=== PATIENT | female | born 1975 | race Caucasian/White ===

== ENCOUNTER 2017-01-18 12:24 | Emergency (ER) | payer OTHER ==
[2017-01-18 12:41] VITALS: BP 129/77; PULSE 75; TEMP 98; BMI 35.5
[2017-01-18] MEDS ORDERED: IBUPROFEN 600 MG TABLET (FP) PO ONE ×2 (15:05→15:08)
[2017-01-18] MEDS ORDERED: ALBUTEROL SO4 2.5/IPRATROPIUM 0.5 INH SOL 3 ML VIAL.NEB. NEB ONE ×2 (15:12→15:22)
--- NOTE | 2017-01-18 15:12 | PDOC ---
History of Present Illness - General Chief Complaint: Cold Symptoms Stated Complaint: CHEST PAIN Time Seen by Provider: 01/18/17 13:10 History Source: Patient Exam Limitations: No Limitations - History of Present Illness Initial Comments: 01/18/17 15:12 Chief complaint: Dry cough 2 days with chest tightness today and chest discomfort with deep breathing and headache History of present illness: Patient is a 41-year-old female with no significant medical history here today complaining of dry cough 2 days with chest tightness and chest discomfort with deep breathing with short of breath. Patient reports having generalized headache that started today. Patient denies any fever. Patient has slight nasal congestion, denies sore throat, nausea, vomiting, or diarrhea or generalized body aches. Patient did not have influenza vaccine. Patient denies that anyone in her family is sick or any known sick contacts or any recent travel. Patient denies any chance of has IUD and has her menstrual cycle now. 01/18/17 16:42 Timing/Duration: intermittent (cough dry with chest discomfort) Severity: mild, severe (headache ) Associated Symptoms: reports: chest pain (with coughing ), cough (dry ), headaches, other (chest discomfort with coughing ) Past History - Past Medical History Allergies/Adverse Reactions: Allergies Allergy/AdvReac Type Severity Reaction Status Date / Time No Known Allergies Allergy Verified 01/18/17 12:36 Home Medications: Ambulatory Orders Albuterol Sulfate Inhaler - [Ventolin HFA Inhaler -] 2 inh PO Q4H PRN #1 inh MDD 6 01/18/17 Guaifenesin Dm [Mucinex Dm -] 1 tab PO Q12H PRN #10 tab.er.12h 01/18/17 Other medical history: denies - Suicide/Smoking/Psychosocial Hx Smoking History: Never smoked Information on smoking cessation initiated: No Hx Alcohol Use: No Drug/Substance Use Hx: No Substance Use Type: None Review of Systems - Review of Systems Able to Perform ROS?: Yes Constitutional: No: Symptoms Reported HEENTM: No: Symptoms Reported Respiratory: Yes: Cough, Other (chest tightness ) Cardiac (ROS): Yes: Chest Tightness Musculoskeletal: No: Symptoms Reported Integumentary: No: Symptoms Reported Neurological: Yes: Headache *Physical Exam - Vital Signs Last Vital Signs Temp Pulse Resp BP Pulse Ox 98 F 75 18 129/77 100 01/18/17 12:36 01/18/17 12:36 01/18/17 12:36 01/18/17 12:36 01/18/17 12:36 - Physical Exam General Appearance: Yes: Appropriately Dressed HEENT: positive: EOMI, CLAY, TMs Normal, Pharyngeal Erythema, Nasal Congestion ( slight), Rhinorrhea. negative: Tonsillar Exudate, Tonsillar Erythema Neck: positive: Lymphadenopathy (L). negative: Lymphadenopathy (R) Respiratory/Chest: positive: Lungs Clear, Normal Breath Sounds. negative: Chest Tender, Respiratory Distress Cardiovascular: positive: Regular Rhythm, Regular Rate, S1, S2 Integumentary: positive: Normal Color Neurologic: positive: occupational rehabilitation aide II-XII NML intact, Fully Oriented, Alert, Normal Response, Respond to painful stimul, Responsive, Finger to Nose Heart Score/ECG Review - ECG Intrepretation Rhythm: Regular Rhythm - ECG Impressions Comment:: 01/18/17 15:42 reviewed by MD Medical Decision Making - Medical Decision Making 01/18/17 15:14 Patient is a 41-year-old female with no significant medical history here today complaining of dry cough 2 days with chest tightness and chest discomfort with deep breathing with short of breath. Patient reports having generalized headache that started today. Patient denies any fever. Patient has slight nasal congestion, denies sore throat, nausea, vomiting, or diarrhea or generalized body aches. Patient did not have influenza vaccine. Patient denies that anyone in her family is sick or any known sick contacts or any recent travel. Patient denies any chance of has IUD and has her menstrual cycle now. R/O influenza A or B R/O strep throat cough headache PLAN: ibuprofen 600 mg po now influenza A or B rapid negative throat C & S rapid negative EKG NSR reviewed by MD villegas now 01/18/17 15:42 01/18/17 16:42 feeling much better will discharge to home with albuterol HFA 2 puffs every 4 hrs prn chest tightness *DC/Admit/Observation/Transfer Diagnosis at time of Disposition: Cough in adult, Feeling of chest tightness Headache Qualifiers: Headache type: unspecified Headache chronicity pattern: unspecified pattern Intractability: not intractable Qualified Code(s): R51 - Headache; R51 - Headache - Discharge Dispostion Disposition: HOME Condition at time of disposition: Stable - Prescriptions Prescriptions: Albuterol Sulfate Inhaler - [Ventolin Hfa Inhaler -] 2 inh PO Q4H PRN #1 inh MDD 6 PRN Reason: Short Of Breath/Wheezing - Patient Instructions Additional Instructions: Drink a lot of fluids and rest Ibuprofen as needed as directed by java j2ee lead Return to emergency room if symptoms worsen or new symptoms develop worsening shortness of breath Follow-up with your primary care provider within the next couple of days Patient voiced understanding of discharge instructions and all questions were answered Thank you for choosing [facility] emergency room for your medical needs today
--- NOTE | 2017-01-19 14:47 | EKG ---
Test Reason : Blood Pressure : / mmHG Vent. Rate : 074 BPM Atrial Rate : 074 BPM P-R Int : 160 ms QRS Dur : 090 ms QT Int : 390 ms P-R-T Axes : 041 035 029 degrees QTc Int : 432 ms NORMAL SINUS RHYTHM NORMAL ECG NO PREVIOUS ECGS AVAILABLE Confirmed by MELI LÓPEZ MD ([id number]) on 01/19/2017 2:46:33 PM Referred By: Confirmed By:MELI LÓPEZ MD
== END 2017-01-18 16:54 | disposition home or self-care (01) ==
LOC: JERFT 12:24
PROC: 3E0F7GC Introduction of Other Therapeutic Substance into Respiratory Tract, Via Natural or Artificial Opening (ICD-10-PCS; principal; 2017-01-18)
DX: R07.1 Chest pain on breathing (principal)
CPT/HCPCS: 87070; 87430; 87804; 93005; 93010; 94640; 99281-25

== ENCOUNTER 2018-05-26 20:46 | Emergency (ER) | payer SELFPAY ==
--- NOTE | 2018-05-26 21:06 | PDOC ---
Rapid Medical Evaluation Chief Complaint: Respiratory Time Seen by Provider: 05/26/18 20:59 Medical Evaluation: Allergies Allergy/AdvReac Type Severity Reaction Status Date / Time No Known Allergies Allergy Verified 01/18/17 12:36 05/26/18 21:06 43 year old female with cough and pain in chest with cough x 1 day. denies fever / chills, PE; patient alert ox3. clear breath sounds A: cough P; chest xray, influenza patient to the Er for further management of care Discharge Disposition - Diagnosis Feeling of chest tightness, Cough - Referrals - Patient Instructions - Post Discharge Activity
[2018-05-26 21:10] VITALS: BP 114/67; PULSE 79; TEMP 100; BMI 37.1
[2018-05-26] MEDS ORDERED: ACETAMINOPHEN 500 MG TABLET (FP) PO ONE (21:47)
--- NOTE | 2018-05-26 21:50 | PDOC ---
History of Present Illness - General Chief Complaint: Respiratory Stated Complaint: COLD symptoms Time Seen by Provider: 05/26/18 20:59 - History of Present Illness Initial Comments: 05/26/18 21:48 43-year-old female currently being treated with Cipro for urinary tract infection presents for 1 day of fever chills bodyaches and nasal congestion. She has no other comorbidities. Past History - Past Medical History Allergies/Adverse Reactions: Allergies Allergy/AdvReac Type Severity Reaction Status Date / Time No Known Allergies Allergy Verified 05/26/18 21:11 Home Medications: Ambulatory Orders Albuterol Sulfate Inhaler - [Ventolin HFA Inhaler -] 2 inh PO Q4H PRN #1 inh MDD 6 01/18/17 Guaifenesin Dm [Mucinex Dm -] 1 tab PO Q12H PRN #10 tab.er.12h 01/18/17 Oseltamivir Phosphate [Tamiflu] 75 mg PO BID #10 capsule 05/26/18 COPD: No - Suicide/Smoking/Psychosocial Hx Smoking History: Never smoked Have you smoked in the past 12 months: No Information on smoking cessation initiated: No Hx Alcohol Use: No Drug/Substance Use Hx: No Substance Use Type: None Review of Systems - Review of Systems Constitutional: Yes: Chills, Fever, Malaise, Night Sweats HEENTM: Yes: Nose Congestion Respiratory: Yes: Cough *Physical Exam - Vital Signs Last Vital Signs Temp Pulse Resp BP Pulse Ox 100.0 F H 79 18 114/67 100 05/26/18 21:07 05/26/18 21:07 05/26/18 21:07 05/26/18 21:07 05/26/18 21:07 - Physical Exam Comments: 05/26/18 21:48 HEAD: NC/AT EYES: Conjuntiva clear Ears: Canals and TM's normal NOSE: No d/c THROAT: Moist mucous membrances, oral pharanx clear, uvula midline NECK: Supple without adenopathy CARDIAC: S1 S2 LUNGS: CTA Full and Equal breath sounds ABDOMEN: Soft NT ND MS: Full ROM in all joints without edema NEUROLOGIC: No gross sensory or motor deficits, NVID SKIN: Normal color and temperature no lesions or rashes Moderate Sedation - Procedure Monitoring Vital Signs: Procedure Monitoring Vital Signs Temperature 100.0 F H 05/26/18 21:07 Pulse Rate 79 05/26/18 21:07 Respiratory Rate 18 05/26/18 21:07 Blood Pressure 114/67 05/26/18 21:07 O2 Sat by Pulse Oximetry (%) 100 05/26/18 21:07 Medical Decision Making - Medical Decision Making 05/26/18 21:48 I have instructed the patient on the use of home Tylenol and Motrin for fever. Use of Tamiflu. Follow-up with PCP in one to 2 days for further evaluation and treatment options. Her chest x-ray of his clear as well as her lung examination do not suspect suspect secondary infection. *DC/Admit/Observation/Transfer Diagnosis at time of Disposition: Feeling of chest tightness, Cough, Influenza - Discharge Dispostion Disposition: HOME Condition at time of disposition: Stable Decision to Admit order: No - Prescriptions Prescriptions: Oseltamivir Phosphate [Tamiflu] 75 mg PO BID #10 capsule - Referrals Referrals: Andreina Dumas RN ASSESSMENT [Primary Care Provider] - - Patient Instructions Printed Discharge Instructions: Influenza Additional Instructions: Tylenol and Motrin as directed for pain. As well as fever. Please take the Tamiflu as directed. Return to the emergency room should symptoms worsen. Follow -up with your primary care physician in one to 2 days for further evaluation and treatment options. The flu is highly contagious and he should be kept away from children and other adults who have not been infected. - Post Discharge Activity
[2018-05-26] MEDS ORDERED: ACETAMINOPHEN 500 MG TABLET (FP) ONE (21:53)
== END 2018-05-26 22:04 | disposition home or self-care (01) ==
LOC: JERFT 20:46
DX: J11.1 Influenza due to unidentified influenza virus with other respiratory manifestations (principal); R07.89 Other chest pain; R05 Cough
CPT/HCPCS: 71046-TC-FY; 87804; 99281-25

== ENCOUNTER 2018-07-09 18:08 | Emergency (ER) | payer SELFPAY ==
--- NOTE | 2018-07-09 18:13 | PDOC ---
Rapid Medical Evaluation Time Seen by Provider: 07/09/18 18:12 Medical Evaluation: Allergies Allergy/AdvReac Type Severity Reaction Status Date / Time No Known Allergies Allergy Verified 05/26/18 21:11 07/09/18 18:12 I performed a brief in-person evaluation of this patient. Chief complaint: Fever x 3 days, notes had IUD removed 1 week ago. Has urinary frequency/urgency and right flank pain, no dysuria. Pertinent physical exam findings: Skin moist. T 99.3 (nook Tylenol 5:30p for fever 101.9). No abdominal tenderness, no CVA tenderness. RRR, S1/S2, lungs CTAB. I have ordered the following: Rapid flu, UA/culture, urine Patient will proceed to the ED for further evaluation. Discharge Disposition - Diagnosis Fever - Referrals - Patient Instructions - Post Discharge Activity
[2018-07-09 18:19] VITALS: TEMP 98.5; BMI 35.5
--- NOTE | 2018-07-09 18:43 | PDOC ---
History of Present Illness - General Chief Complaint: Pain, Acute Stated Complaint: FEVER Time Seen by Provider: 07/09/18 18:12 History Source: Patient Exam Limitations: No Limitations - History of Present Illness Initial Comments: 07/09/18 18:43 43 year old woman w/ no significant pmhx presents with a fever for 3 days, and w/ urinary frequency/urgency, muscle aches and low back pain. Patient had removal of her IUD 1 week ago. Patient denies any bleeding, discharge or pelvic pain. The patient took a Tylenol at 1750 for a fever of 101.9 Denies chest pain ,shortness of breath, viral uri symptoms, n/v/d/c Past History - Past Medical History Allergies/Adverse Reactions: Allergies Allergy/AdvReac Type Severity Reaction Status Date / Time No Known Allergies Allergy Verified 07/09/18 18:14 Home Medications: Ambulatory Orders Albuterol Sulfate Inhaler - [Ventolin HFA Inhaler -] 2 inh PO Q4H PRN #1 inh MDD 6 01/18/17 COPD: No - Immunization History Immunization Up to Date: Yes - Suicide/Smoking/Psychosocial Hx Smoking History: Never smoked Have you smoked in the past 12 months: No Information on smoking cessation initiated: No Hx Alcohol Use: No Drug/Substance Use Hx: No Substance Use Type: None Review of Systems - Review of Systems Able to Perform ROS?: Yes Comments:: 07/09/18 19:02 GENERAL/CONSTITUTIONAL: + fever, malaise HEAD, EYES, EARS, NOSE AND THROAT: No change in vision. No ear pain or discharge. No sore throat. CARDIOVASCULAR: No chest pain or shortness of breath RESPIRATORY: No cough, wheezing, or hemoptysis. GASTROINTESTINAL: No nausea, vomiting, diarrhea or constipation. GENITOURINARY: No dysuria, + urgency MUSCULOSKELETAL: No joint or muscle swelling or pain. + back pain SKIN: No rash NEUROLOGIC: No headache, vertigo, loss of consciousness, or change in strength/ sensation. ENDOCRINE: No increased thirst. No abnormal weight change HEMATOLOGIC/LYMPHATIC: No anemia, easy bleeding, or history of blood clots. ALLERGIC/IMMUNOLOGIC: No hives or skin allergy. Is the patient limited Trinidadian proficient: No *Physical Exam - Vital Signs Last Vital Signs Temp Pulse Resp BP Pulse Ox 98.5 F 111 H 18 105/80 98 07/09/18 18:14 04/19/19 18:14 07/09/18 18:14 07/09/18 18:14 07/09/18 18:14 - Physical Exam Comments: 07/09/18 23:33 GENERAL: Awake, alert, and fully oriented, in no acute distress HEAD: No signs of trauma, normocephalic, atraumatic EYES: EOMI, sclera anicteric, conjunctiva clear ENT:oropharynx clear without exudates. Moist mucosa NECK: Normal ROM, supple LUNGS: No distress, speaks full sentences, clear to auscultation bilaterally HEART: Regular rate and rhythm, normal S1 and S2, no murmurs, rubs or gallops, peripheral pulses normal and equal bilaterally. ABDOMEN: Soft, + LLQ tender, normoactive bowel sounds. No guarding, no rebound. No masses BACK: slight bilateral CVA EXTREMITIES : Normal inspection, Normal range of motion, no edema. No clubbing or cyanosis. NEUROLOGICAL: Cranial nerves II through XII grossly intact. Normal speech, no focal sensorimotor deficits SKIN: Warm, Dry, normal turgor, no rashes or lesions noted ED Treatment Course - LABORATORY CBC & Chemistry Diagram: 07/09/18 18:51 07/09/18 18:51 Medical Decision Making - Medical Decision Making 07/09/18 18:46 43 year old woman w/ no significant pmhx presents with a fever for 3 days, and w/ urinary frequency/urgency, muscle aches and low back pain. Patient had removal of her IUD 1 week ago. Patient denies any bleeding, discharge or pelvic pain. The patient took a Tylenol at 1750 for a fever of 101.9 ED Course: consider uti vs pyelo r/o nephrolithiasis vs hernia vs ovarian mass/cyst vs pid Per patient cannot have anything vaginally inserted for 15 days after IUD removal as told to her by her OBGYN couldn't perform TVUS labs and ua unremarkale PO and IV contrast ordered in light of fever without clear source patient signed out to resident Dr. Segura *DC/Admit/Observation/Transfer Diagnosis at time of Disposition: Fever - Discharge Dispostion Disposition: HOME Condition at time of disposition: Improved - Referrals Referrals: Marcy Gomez MD [Staff Physician] - Oyekola,Mobolaji, HAM FACER [Primary Care Provider] - - Patient Instructions Printed Discharge Instructions: DI for Abdominal Pain-Adult Additional Instructions: Please return to the emergency department with any new or worsening symptoms or concerns. Please follow up with your Legal Technician or primary care physician within 72 hours. - Post Discharge Activity
[2018-07-09] MEDS ORDERED: SODIUM CHLORIDE 1,000 ML IV SCH (18:45)
[2018-07-09 19:08] LABS: URINE APPEARANCE CLEAR; URINE BILIRUBIN NEGATIVE (NEGATIVE); URINE COLOR YELLOW; URINE GLUCOSE (UA) NEGATIVE (NEGATIVE); URINE KETONE NEGATIVE (NEGATIVE); URINE LEUK ESTERASE TRACE (NEGATIVE); URINE NITRITE NEGATIVE (NEGATIVE); URINE PROTEIN NEGATIVE (NEGATIVE); URINE UROBILINOGEN 0.2 mg/dL (0.2-1.0)
[2018-07-09 19:11] LABS: HCG,QUALITATIVE URINE Negative
[2018-07-09 19:29] LABS: BASO % 0.7 % (0-2.0); EOS % 0.1 % (0-4.5); HEMATOCRIT 40.1 % (32.4-45.2); HEMOGLOBIN 13.8 GM/dL (10.7-15.3); LYMPH % 23.3 % (8-40); MCH 28.2 pg (25.7-33.7); MCHC 34.5 g/dl (32.0-36.0); MEAN CELL VOLUME 81.8 fl (80-96); MEAN PLT VOLUME 8.9 fl (7.5-11.1); MONO % 8.6 % (3.8-10.2); NEUT % 67.3 % (42.8-82.8); PLATELET COUNT 243 K/MM3 (134-434); RDW 14.8 % (11.6-15.6); WHITE BLOOD COUNT 5.5 K/mm3 (4.0-10.0)
[2018-07-09 19:54] LABS: URINE RBC 0.8 /hpf (0-4); URINE WBC 0.6 /hpf (0-5)
[2018-07-09 19:55] LABS: EPI CELLS 1.3 /HPF (0-5/HPF); URINE BACTERIA 5.6 /hpf (NEGATIVE); URINE CASTS NONE SEEN /lpf (0-8)
[2018-07-09 20:20] LABS: ALK PHOS 125 U/L (45-117); ANION GAP 10 MMOL/L (8-16); BILIRUBIN,TOTAL 0.8 mg/dL (0.2-1); BLOOD UREA NITROGEN 8 mg/dL (7-18); CALCIUM 8.9 mg/dL (8.5-10.1); CHLORIDE 106 mmol/L (98-107); CO2 22 mmol/L (21-32); CREATININE 0.7 mg/dL (0.55-1.3); GLUCOSE,RANDOM 108 mg/dL (74-106); POTASSIUM 3.7 mmol/L (3.5-5.1); SGOT/AST 34 U/L (15-37); SGPT/ALT 39 U/L (13-61); SODIUM 137 mmol/L (136-145); TOT PROT 7.2 g/dl (6.4-8.2)
[2018-07-10 01:37] VITALS: BP 104/75; PULSE 78
== END 2018-07-10 01:37 | disposition home or self-care (01) ==
LOC: JER 18:08
DX: R50.9 Fever, unspecified (principal)
CPT/HCPCS: 36415; 74176-TC; 76856-TC; 80053; 81003; 84703; 85025; 87086; 87804; 99283-25; J7030